=== PATIENT | female | born 1975 | race American Indian/Alaskan Native ===

== ENCOUNTER 2018-09-19 13:01 | Emergency (ER) | payer OTHER ==
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
[2018-09-19 13:21] VITALS: BP 167/101
--- NOTE | 2018-09-19 14:14 | XRay Report ---
CERVICAL SPINE, 3 views: History: Neck pain. Findings: The vertebral bodies, disk spaces, posterior elements and prevertebral soft tissues are unremarkable. The dens is intact. No acute fracture or malalignment is identified. Impression: 1. No evidence for acute injury to the cervical spine.
--- NOTE | 2018-09-19 14:14 | XRay Report ---
LEFT HIP, 2 views: History: Pain. The bony architecture is intact without evidence of fracture or dislocation. No significant soft tissue abnormality is seen. IMPRESSION: Normal left hip.
[2018-09-19] MEDS ORDERED: IBUPROFEN PO ONE (14:18)
[2018-09-19] MEDS ORDERED: NORCO 5/325 PO ONE (14:18)
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
== END 2018-09-19 14:53 | disposition home or self-care (01) ==
LOC: ED 13:01
DX: S16.1XXA Strain of muscle, fascia and tendon at neck level, initial encounter (principal); S76.012A Strain of muscle, fascia and tendon of left hip, initial encounter; V43.62XA Car passenger injured in collision with other type car in traffic accident, initial encounter; Y93.89 Activity, other specified; Y92.488 Other paved roadways as the place of occurrence of the external cause; Y99.8 Other external cause status
CPT/HCPCS: 72040; 99283

== ENCOUNTER 2021-02-23 09:48 | Outpatient (CLI) | payer OTHER ==
--- NOTE | 2021-02-23 14:42 | Ultrasound Report ---
ULTRASOUND PELVIS INDICATION / CLINICAL INFORMATION: RIGHT LOWER QUADRANT PAIN. TECHNIQUE: Transabdominal. Duplex Color Doppler used: Yes. COMPARISON: None available FINDINGS: UTERUS: - Appearance: No significant abnormality. - Size (cm): 10.1 x 5.6 x 6.1 cm. - Endometrial Complex (if present): Mildly thickened.. Thickness in cm (if measured) = 1.7 cm. - Mass or cyst: None. - Additional findings: None. RIGHT ADNEXA: The right ovary measures 4.7 x 3.6 x 2.9 cm. No significant ovarian cyst or mass. Debra l color Doppler blood flow. LEFT ADNEXA: The left ovary is not visualized. URINARY BLADDER: No significant abnormality. FREE FLUID: Trace. ADDITIONAL FINDINGS: None. IMPRESSION: 1. Mildly thickened endometrium. 2. Nonvisualization of the left ovary. No significant adnexal abnormality. Scribed by: Tasha Luciano RDMS, RVT Scribed: 02/23/2021 12:44 PM I have reviewed the images, agree with this report, and edited this report as needed. Signer Name: Yuri Lozano MD Signed: 02/23/2021 2:37 PM Workstation Name: [email or web address]
== END 2021-02-23 09:49 | disposition home or self-care (01) ==
LOC: US 09:48
PROVIDERS: ATTEND Surgery
DX: R93.89 Abnormal findings on diagnostic imaging of other specified body structures (principal)
CPT/HCPCS: 76856

== ENCOUNTER 2021-03-16 11:07 | Outpatient (CLI) | payer OTHER ==
--- NOTE | 2021-03-16 11:56 | Cat Scan Report ---
CT PELVIS WITHOUT CONTRAST HISTORY: RIGHT LOWER QUADRANT PAIN. COMPARISON: None. TECHNIQUE: CT images of the pelvis were obtained following administration of intravenous contrast. Sa gittal and coronal reformatted images. All CT scans at this location are performed using CT dose redu ction for [facility] by means of automated exposure control. FINDINGS: There is a large [place] umbilical hernia containing fat. The hernia neck measures 5.3 cm in diamet er. A 1.7 cm left ovarian cyst is identified. The uterus and right adnexa are unremarkable. Normal bladde r. Visualized bowel loops in the pelvis are within normal limits. Normal appendix. No evidence for fr ee fluid, fluid collection or free air. The bony structures are unremarkable. IMPRESSION: No acute process. Large umbilical hernia containing fat. 1.7 cm left ovarian cyst. No clear explanation for right lower quadrant pain. Signer Name: Jay Yarbrough Jr, MD Signed: 03/16/2021 11:52 AM Workstation Name: [id number]
== END 2021-03-16 11:08 | disposition home or self-care (01) ==
LOC: CT 11:07
PROVIDERS: ATTEND Surgery
DX: N83.202 Unspecified ovarian cyst, left side (principal); K42.9 Umbilical hernia without obstruction or gangrene
CPT/HCPCS: 72192